=== PATIENT | female | born 1955 | race Caucasian/White ===

== ENCOUNTER 2024-05-14 14:18 | Emergency (ER) | payer BC, MEDICAID ==
[~2024-05-14] VITALS: Ht 160 cm; Wt 70.0 kg
[2024-05-14 14:23] VITALS: O2SAT 98
[2024-05-14] MEDS: ACETAMINOPHEN 500MG TABLET PO ONE (15:59)
[2024-05-14] MEDS: CYCLOBENZAPRINE 10MG TABLET PO SCH (16:01)
[2024-05-14] MEDS ORDERED: IBUP-2029 MT (17:32)
[2024-05-14 18:28] VITALS: BP 129/86; PULSE 77; RESP 19; TEMP 98.3
== END 2024-05-14 21:45 | disposition home or self-care (01) ==
LOC: ER 14:18
DX: M25.552 Pain in left hip (principal); W01.0XXA Fall on same level from slipping, tripping and stumbling without subsequent striking against object, initial encounter; Y93.89 Activity, other specified; Y92.89 Other specified places as the place of occurrence of the external cause; Y99.8 Other external cause status
CPT/HCPCS: 71045; 73060; 73502; 73562; 99284